=== PATIENT | female | born 1935 | race Caucasian/White ===

== ENCOUNTER 2016-04-21 13:37 | Inpatient (IN) | payer MEDICARE, OTHER ==
[~2016-04-21] VITALS: Ht 160 cm; Wt 54.0 kg
[2016-04-21] MEDS ORDERED: FLUO-191 PO (13:47)
[2016-04-21] MEDS ORDERED: PROZ10 PO (13:47)
[2016-04-21] MEDS ORDERED: ATOR10TA84 PO (14:03)
[2016-04-21] MEDS ORDERED: SOTA80 PO (14:03)
[2016-04-21] MEDS ORDERED: HYDR-4106 PO (14:03)
[2016-04-21] MEDS ORDERED: ASCO500 PO (14:03)
[2016-04-21] MEDS ORDERED: CARV12 PO (14:03)
[2016-04-21 14:26] VITALS: BP 197/75
[2016-04-21] MEDS ORDERED: ZOLPIDEM TARTRATE 10 MG TABLET PO PRN (15:30)
[2016-04-21] MEDS ORDERED: LORazepam 1 MG TABLET PO PRN (15:30)
[2016-04-21 16:33] VITALS: BP 166/77
[2016-04-21] MEDS ORDERED: CARVEDILOL 12.5 MG TABLET PO ONE (17:00)
[2016-04-21 19:30] VITALS: BP 123/71
[2016-04-21] MEDS: IBUPROFEN 600 MG TABLET PO PRN (19:44)
[2016-04-21] MEDS: ATORVASTATIN CALCIUM 10 MG TABLET PO SCH (21:15)
[2016-04-21] MEDS: SOTALOL HCL 80 MG TABLET PO SCH (22:21)
[2016-04-22 05:54] VITALS: BP 145/78
[2016-04-22] MEDS: IBUPROFEN 600 MG TABLET PO PRN ×3 (05:57→19:06)
[2016-04-22 08:02] LABS: BASOPHILS # (AUTO) 0.01 K/uL (0.00-0.20); BASOPHILS % (AUTO) 0.2 % (0.0-2.0); EOSINOPHILS # (AUTO) 0.04 K/uL (0.00-0.70); EOSINOPHILS % (AUTO) 0.79 % (1.0-6.0); HEMATOCRIT 42.8 % (36-46); HEMOGLOBIN 14.2 g/dL (12.0-16.0); LYMPHOCYTES % (AUTO) 19.9 % (22.0-44.0); MEAN CORPUSCULAR HEMOGLOBIN 31.7 pg (26.0-34.0); MEAN CORPUSCULAR HGB CONC 33.2 G/dL (31.0-37.0); MEAN CORPUSCULAR VOLUME 95 fL (80-100); MONOCYTES # (AUTO) 0.3 K/uL (0.1-1.0); NEUTROPHILS # (AUTO) 3.8 K/uL (1.8-7.7); NEUTROPHILS % (AUTO) 74.1 % (40.0-70.0); PLATELET COUNT (AUTO) 158 K/uL (150-450); RED BLOOD CELL COUNT(AUTO) 4.48 MIL/uL (4.00-5.20); RED CELL DISTRIBUTION WIDTH 13.6 % (11.5-14.5); WHITE BLOOD COUNT (AUTO) 5.2 K/uL (4.5-11.0)
[2016-04-22 08:08] VITALS: BP 133/53
[2016-04-22 08:09] LABS: HEMOGLOBIN A1C 5.1 % (4.5-6.2)
[2016-04-22] MEDS: CARVEDILOL 12.5 MG TABLET PO SCH (08:23)
[2016-04-22] MEDS: SOTALOL HCL 80 MG TABLET PO SCH ×2 (08:23→16:34)
[2016-04-22] MEDS: ASCORBIC ACID 500 MG TABLET PO SCH (08:23)
[2016-04-22 08:34] LABS: ALANINE AMINOTRANSFERASE 45 U/L (12-78); ALBUMIN 3.9 g/dL (3.4-5.0); ANION GAP 8 mmol/L (8-16); ASPARTATE AMINOTRANSFERASE 38 U/L (15-37); BILIRUBIN,TOTAL 1.2 mg/dL (0.1-1.0); CALCIUM, TOTAL 9.2 mg/dL (8.8-10.5); CARBON DIOXIDE 29 mmol/L (22-29); CHLORIDE 104 mmol/L (98-107); CHOL/HDL RATIO 1.9 (3.9-5.7); CREATINE KINASE, TOTAL 53 U/L (26-192); CREATININE 1.02 mg/dL (0.60-1.30); GLOMERULAR FILTR. RATE CALC 52 mL/min (>60); POTASSIUM 3.9 mmol/L (3.5-5.1); SODIUM SERUM 141 mmol/L (136-145); THYROID STIMULATING HORMONE 1.34 uIU/mL (0.36-3.74); TOTAL PROTEIN, SERUM 7.5 g/dL (6.4-8.2); UREA NITROGEN, BLOOD 19 mg/dL (7-18)
[2016-04-22 08:44] LABS: B-TYPE NATRIURETIC PEPTIDE 169 pg/mL (0-100)
[2016-04-22 09:00] LABS: VITAMIN B12 LEVEL 392 pg/mL (211-911)
[2016-04-22] MEDS ORDERED: ASCORBIC ACID 500 MG TABLET PO SCH (09:00)
[2016-04-22] MEDS ORDERED: FLUoxetine HCL 20 MG CAPSULE PO SCH (09:00)
[2016-04-22 16:06] VITALS: BP 120/66
[2016-04-22 19:00] VITALS: BP 120/62
[2016-04-22] MEDS: ATORVASTATIN CALCIUM 10 MG TABLET PO SCH (20:28)
[2016-04-23] VITALS (9 sets, daily range): BP systolic 111–171; BP diastolic 60–78
[2016-04-23] MEDS: CloNIDine HCL 0.1 MG TABLET PO PRN (05:52)
[2016-04-23] MEDS: IBUPROFEN 600 MG TABLET PO PRN ×3 (05:52→20:45)
[2016-04-23] MEDS: ASCORBIC ACID 500 MG TABLET PO SCH (08:47)
[2016-04-23] MEDS: CARVEDILOL 12.5 MG TABLET PO SCH (08:48)
[2016-04-23] MEDS: SOTALOL HCL 80 MG TABLET PO SCH ×2 (08:48→17:03)
[2016-04-23] MEDS ORDERED: FLUoxetine HCL 20 MG CAPSULE PO SCH (09:00)
[2016-04-23] MEDS: LISINOPRIL 10 MG TABLET PO SCH (10:50)
[2016-04-23] MEDS: ACETAMINOPHEN 325 MG TABLET PO PRN (10:53)
[2016-04-23 13:15] LABS: HEPATITIS Bs ANTIGEN SCREEN P Negative (Negative); HEPATITIS C AB SCREEN <0.1 s/co ratio (0.0-0.9)
[2016-04-23] MEDS: ATORVASTATIN CALCIUM 10 MG TABLET PO SCH (20:45)
[2016-04-24] MEDS: ZOLPIDEM TARTRATE 5 MG TABLET PO PRN ×2 (00:14→22:58)
[2016-04-24 00:35] VITALS: BP 129/71
[2016-04-24] MEDS: SOTALOL HCL 80 MG TABLET PO SCH ×2 (08:32→18:03)
[2016-04-24] MEDS: ASCORBIC ACID 500 MG TABLET PO SCH (08:32)
[2016-04-24] MEDS: FLUoxetine HCL 20 MG CAPSULE PO SCH (08:32)
[2016-04-24] MEDS: CARVEDILOL 12.5 MG TABLET PO SCH (08:32)
[2016-04-24 08:34] VITALS: BP 157/65
[2016-04-24] MEDS: IBUPROFEN 600 MG TABLET PO PRN ×2 (08:41→16:16)
[2016-04-24] MEDS: LISINOPRIL 10 MG TABLET PO SCH (09:36)
[2016-04-24 11:42] VITALS: BP 172/76
[2016-04-24] MEDS ORDERED: LISINOPRIL 10 MG TABLET PO ONE (11:45)
[2016-04-24 14:08] VITALS: BP 108/69
[2016-04-24 16:17] VITALS: BP 126/66
[2016-04-24] MEDS: ATORVASTATIN CALCIUM 10 MG TABLET PO SCH (20:31)
[2016-04-25 04:35] VITALS: BP 126/76
[2016-04-25] MEDS: IBUPROFEN 600 MG TABLET PO PRN (04:52)
[2016-04-25 08:26] VITALS: BP 170/71
[2016-04-25] MEDS: FLUoxetine HCL 20 MG CAPSULE PO SCH (08:32)
[2016-04-25] MEDS: ASCORBIC ACID 500 MG TABLET PO SCH (08:33)
[2016-04-25] MEDS: CARVEDILOL 12.5 MG TABLET PO SCH (08:33)
[2016-04-25] MEDS: SOTALOL HCL 80 MG TABLET PO SCH (08:33)
[2016-04-25] MEDS ORDERED: LISI-618 PO (08:43)
[2016-04-25 08:59] VITALS: BP 170/71
[2016-04-25] MEDS: ACETAMINOPHEN 325 MG TABLET PO PRN (08:59)
[2016-04-25] MEDS ORDERED: LISINOPRIL 20 MG TABLET PO SCH (09:00)
[2016-04-25] MEDS ORDERED: ASCO500C6 PO (09:53)
[2016-04-25] MEDS: CloNIDine HCL 0.1 MG TABLET PO PRN (09:57)
[2016-04-25 09:59] VITALS: BP 174/77
[2016-04-25 12:30] VITALS: BP 107/57
== END 2016-04-25 13:20 | disposition home or self-care (01) | DRG 885 ==
LOC: B2X 15:26
PROVIDERS: ADMIT Psychiatry & Neurology Psychiatry; ATTEND Psychiatry & Neurology Psychiatry
DX: F33.2 Major depressive disorder, recurrent severe without psychotic features (principal); R45.851 Suicidal ideations; E78.5 Hyperlipidemia, unspecified; F43.20 Adjustment disorder, unspecified; H35.30 Unspecified macular degeneration; H91.90 Unspecified hearing loss, unspecified ear; H54.8 Legal blindness, as defined in USA; I50.9 Heart failure, unspecified; I11.0 Hypertensive heart disease with heart failure; G89.29 Other chronic pain; J44.9 Chronic obstructive pulmonary disease, unspecified; M79.7 Fibromyalgia; Z90.49 Acquired absence of other specified parts of digestive tract; Z81.1 Family history of alcohol abuse and dependence; Z84.89 Family history of other specified conditions; Z88.5 Allergy status to narcotic agent; Z86.69 Personal history of other diseases of the nervous system and sense organs
CPT/HCPCS: 80074; 82306; 82607; 82746; 83036; 83735; 84439; 84443; 86592